=== PATIENT | female | born 1925 | race Caucasian/White ===

== ENCOUNTER 2016-04-10 12:50 | Outpatient (RCR) | payer MEDICARE ==
--- OUTSIDE RECORDS SUMMARY | 2016-01-31 15:04 | XMS REPORT | Continuity of Care Document ---
Author Author [facility] Organization [facility] Address Unknown Phone Unavailable Care Team Providers Care Crisis Therapist Name Role Phone Samantha Roman PCP [phone] Source Comments Some departments are not documenting in the electronic medical record. If you do not see the information that you expected, contact Release of Information in the Health Information Management department at [phone] for further assistance in locating additional records.[facility] Active Allergies and Adverse Reactions No Known Allergies Current Medications Prescription Sig. Disp. Refills Start End Date Status Date aspirin EC 81 mg PO Take 81 mg by mouth twice Active tablet weekly. CHOLECALCIFEROL (VITAMIN Take by mouth as Needed. Active D3) (VITAMIN D-3 PO) VITAMIN E(DL-ALPHA Use as directed daily. Active TOCOPHEROL) (VITAMIN E (BULK) MISC) carbidopa/levodopa 1/2 tab three times daily 90 Tab 5 09/02/19 Active (SINEMET) 25/100 mg x 2 weeks then increase 15 tablet to 1 tab thereafter as tolerated. Take 30 min prior to meals of 60 min after Active Problems Problem Noted Date Ascending aortic aneurysm- S/P repair 200305/04/2010 Overview: Aortic root replacement with # 21 pericardial bioprosthesis - 05/07/03 - Dr. Lio Brown History of aortic valve replacement 05/04/2010 Overview: 05/07/03 - # 21mm Quiñonez with aortic root replacement Temporal arteritis, HX of 05/04/2010 HX: breast cancer- S/P L mastectomy 1965 05/04/2010 History of total hip replacement- left 200105/04/2010 Hx left wrist surgery 198205/04/2010 Hx left ankle surgery 199305/04/2010 Resolved Problems Problem Noted Date Resolved Date HX: breast cancer- S/P L masectecomy 1965 05/04/2010 05/04/2010 Social History Tobacco Use Types Packs/Day Years Used Date Never Smoker Smokeless Tobacco: Never Used Alcohol Use Drinks/Week oz/Week Comments No Last Filed Vital Signs Vital Sign Reading Time Taken Blood Pressure 163/76 09/01/2014 12:47 PM CDT Pulse 85 09/01/2014 12:47 PM CDT Temperature 36.8 C (98.2 F) 09/01/2014 12:47 PM CDT Respiratory Rate - - Height 1.524 m (5') 09/01/2014 12:47 PM CDT Weight 56.79 kg (125 lb 3.2 oz) 09/01/2014 12:47 PM CDT Body Mass Index 24.45 09/01/2014 12:47 PM CDT Oxygen Saturation 99% 09/01/2014 12:47 PM CDT Plan of Care Health Maintenance Due Date Last Done Comments Physical (Comprehensive) 1933 Exam Pertussis Vaccine 1937 Tetanus Vaccine 12/08/1943 Shingles Vaccine 1986 Osteoporosis Screening 12/08/1991 Prevnar/Pneumovax (#1) 12/08/1991 Influenza Vaccine 10/21/2015 Results from Last 3 Months Not on file
[2016-01-31 15:24] LABS: BASOPHILS % (AUTO) 1 % (0-10); EOSINOPHILS # (AUTO) 0.1 10^3/uL (0.0-0.3); EOSINOPHILS % (AUTO) 2 % (0-10); LYMPHOCYTES % (AUTO) 20 % (12-44); MEAN CORPUSCULAR HEMOGLOBIN 22 PG (25-34); MEAN CORPUSCULAR HGB CONC 33 G/DL (32-36); MEAN CORPUSCULAR VOLUME 67 FL (80-99); MEAN PLATELET VOLUME 10.2 FL (7.4-10.4); MONOCYTES # (AUTO) 0.5 X 10^3 (0.0-1.0); MONOCYTES % (AUTO) 10 % (0-12); NEUTROPHILS # (AUTO) 3.3 X 10^3 (1.8-7.8); NEUTROPHILS % (AUTO) 67 % (42-75); PLATELET COUNT 228 10^3/uL (130-400); RED BLOOD COUNT 6.27 10^6/uL (4.35-5.85); RED CELL DISTRIBUTION WIDTH 21.4 % (10.0-14.5); WHITE BLOOD COUNT 4.9 10^3/uL (4.3-11.0)
[2016-01-31 15:52] LABS: ALANINE AMINOTRANSFERASE 22 U/L (0-55); ALBUMIN 4.7 G/DL (3.2-4.5); ANION GAP 10 MMOL/L (5-14); ASPARTATE AMINO TRANSFERASE 30 U/L (5-34); BILIRUBIN,TOTAL 0.5 MG/DL (0.1-1.0); BLOOD UREA NITROGEN 12 MG/DL (7-18); BUN/CREATININE RATIO 16; CALCIUM 9.5 MG/DL (8.5-10.1); CARBON DIOXIDE 27 MMOL/L (21-32); CHLORIDE 102 MMOL/L (98-107); CREATININE SERUM 0.74 MG/DL (0.60-1.30); GFR ESTIMATED > 60; GLUCOSE 96 MG/DL (70-105); POTASSIUM 3.7 MMOL/L (3.6-5.0); SODIUM 139 MMOL/L (135-145); TOTAL PROTEIN 7.6 G/DL (6.4-8.2)
[~2016-04-10 12:50] MED LIST: ASPI-587 PO; CARB1TAB19 PO; CARB1TAB44 PO; CEPH500C PO; HYDR-1231 PO; HYDR-3812 PO; NITR-65 PO; PANT40SU PO
[2016-04-10 13:03] LABS: BASOPHILS % (AUTO) 1 % (0-10); EOSINOPHILS # (AUTO) 0.1 10^3/uL (0.0-0.3); EOSINOPHILS % (AUTO) 1 % (0-10); LYMPHOCYTES # (AUTO) 1.1 X 10^3 (1.0-4.0); LYMPHOCYTES % (AUTO) 19 % (12-44); MEAN CORPUSCULAR HEMOGLOBIN 23 PG (25-34); MEAN CORPUSCULAR HGB CONC 33 G/DL (32-36); MEAN CORPUSCULAR VOLUME 68 FL (80-99); MONOCYTES # (AUTO) 0.6 X 10^3 (0.0-1.0); MONOCYTES % (AUTO) 11 % (0-12); NEUTROPHILS # (AUTO) 3.9 X 10^3 (1.8-7.8); NEUTROPHILS % (AUTO) 68 % (42-75); PLATELET COUNT 233 10^3/uL (130-400); RED BLOOD COUNT 6.17 10^6/uL (4.35-5.85); RED CELL DISTRIBUTION WIDTH 18.7 % (10.0-14.5); WHITE BLOOD COUNT 5.7 10^3/uL (4.3-11.0)
[2016-04-10 13:36] LABS: ALANINE AMINOTRANSFERASE < 6 U/L (0-55); ALBUMIN 4.5 G/DL (3.2-4.5); ANION GAP 11 MMOL/L (5-14); ASPARTATE AMINO TRANSFERASE 30 U/L (5-34); BILIRUBIN,TOTAL 0.5 MG/DL (0.1-1.0); BLOOD UREA NITROGEN 15 MG/DL (7-18); BUN/CREATININE RATIO 20; CALCIUM 9.4 MG/DL (8.5-10.1); CARBON DIOXIDE 27 MMOL/L (21-32); CHLORIDE 102 MMOL/L (98-107); CREATININE SERUM 0.74 MG/DL (0.60-1.30); GFR ESTIMATED > 60; GLUCOSE 84 MG/DL (70-105); POTASSIUM 3.8 MMOL/L (3.6-5.0); SODIUM 140 MMOL/L (135-145); TOTAL PROTEIN 7.5 G/DL (6.4-8.2)
== END 2016-04-30 | disposition home or self-care (01) ==
LOC: ONC 12:50
PROVIDERS: ATTEND Internal Medicine Hematology & Oncology
DX: D50.9 Iron deficiency anemia, unspecified (principal); G20 Parkinson's disease; Z85.3 Personal history of malignant neoplasm of breast; Z90.12 Acquired absence of left breast and nipple; Z79.899 Other long term (current) drug therapy
CPT/HCPCS: 36415; 80053; 82728; 83540; 85025; 86300; 99213